=== PATIENT | female | born 1970 | race Caucasian/White ===

== ENCOUNTER 2016-08-15 09:07 | Inpatient (IN) ==
[2016-08-15] MEDS ORDERED: SODIUM CHLORIDE 0.9% 500 ML IV STA (09:26)
[2016-08-15] MEDS ORDERED: HYDROmorphone 2 MG/1 ML VIAL IV STA ×2 (09:26→10:08)
[2016-08-15] MEDS ORDERED: ONDANSETRON 4 MG/2 ML VIAL IV STA (09:26)
[2016-08-15] MEDS ORDERED: ONDANSETRON 4 MG/2 ML VIAL ONE (09:31)
[2016-08-15] MEDS ORDERED: HYDROmorphone 2 MG/1 ML VIAL ONE ×2 (09:31→10:10)
[2016-08-15 10:04] LABS: Basophils % 0.3 % (0.0-0.8); Eosinophils % 0.3 % (0.00-10.9); Hematocrit 42.3 VOL% (35.7-47.0); Hemoglobin 14.5 GM/DL (12.0-16.0); Immature Granulocytes % 0.4 %; Immature Granulocytes Absolute 0.04 #; Lymphocytes # 1.1 10*3/uL (1.4-4.0); Lymphocytes % 10.5 % (21.3-54.2); Mean Corpuscular HGB Conc 34.3 GM/DL (32-36); Mean Corpuscular Hemoglobin 32 PG (27-34); Mean Corpuscular Volume 92.4 FL (87-102); Mean Platelet Volume 11.1 FL (9.6-12.0); Monocytes # 0.3 10*3/uL (0.11-0.8); Monocytes % 2.4 % (1.7-12.7); Neutrophils # 8.9 10*3/uL (1.4-7.4); Neutrophils % 86.1 % (38.7-73.9); Platelet Count 245 T/CUMM (130-400); Red Blood Count 4.58 MC/CUMM (3.8-5.5); White Blood Count 10.3 T/CUMM (4-12)
[2016-08-15 10:35] LABS: Albumin 3.7 G/DL (3.4-5.0); Bilirubin,Total 1.1 MG/DL (0.2-1.0); Potassium 3.7 MMOL/L (3.5-5.1); Total Protein 6.9 G/DL (6.4-8.3)
[2016-08-15 11:11] LABS: Apearance,Urine Slightly Hazy (Clear); Bacteria,Urine Occasional /HPF (Few); Bilirubin,Urine Negative (Negative); Blood, Urine Negative (Negative); Glucose,Urine (UA) Negative (Negative); Ketones,Urine 5 mg/dL (Negative); Mucus,Urine Moderate /LPF (Occasional); Nitrite,Urine Negative (Negative); Protein,Urine Negative; RBC,Urine 6 /HPF (0-4); Squamous Epithelial Cell,Urine Few /HPF (0-10); Urine Specific Gravity 1.018 (1.001-1.035); WBC,Urine 2 /HPF (0-6)
[2016-08-15 11:12] LABS: Urine Color Dark Yellow (Yellow)
--- NOTE | 2016-08-15 11:21 | Ultrasound Report ---
Gallbladder ultrasound. Indication: Right upper quadrant abdominal pain. The liver is normal in size and parenchymal echogenicity without focal lesion or intrahepatic ductal dilatation. Gallstones are seen, one in the fundus, and one in the gallbladder neck. There is borderline gallbladder wall thickening at 3.2 mm. The common duct is dilated at 9 mm. The right kidney presents a normal appearance. No pancreatic abnormality is seen. Impression: Cholelithiasis. Borderline gallbladder wall thickening. Dilatation of the common duct. PROCEDURE INTERPRETED AT [facility] [place] DEPARTMENT OF RADIOLOGY Final Report Signed by: Dr. Sheila Wisdom
--- NOTE | 2016-08-15 12:02 | Emergency Department Note ---
Minh Carranza Brooke, am scribing for, and in the presence of, William Mcdaniel MD 09:31. Jonas Carranza Phillip K, MD, personally performed the services described in this documentation, ascribed by Stacy Wilkinson in my presence, and it is both accurate and complete . Arrival - Arrival Chief Complaint: Abdominal / Flank Pain Stated Complaint: abd pain/gall bladder ED Nursing Triage Note: PT HAS BAD GALLBLADDER AND IS SCHEDULED FOR LAP CHOL NEXT WEEK. REPORTS SHE STARTED HURTING AT 0200 THIS AM AND PAIN WONT PASS. REPORTS N/V Mode of Arrival: Wheelchair Limitations: No Limitations Source: Patient, RN Notes Reviewed Time Seen by Provider: 08/15/16 09:20 - History of Present Illness HPI Narrative: Patient is a 46 year old female who presents to the ED with c/o RUQ abdominal pain that started about six months ago but has worsened over time. She says she has been having intermittent episodes of pain that usually went away after a few hours, however, the pain started around 0200 this morning and has not stopped since. She says the pain does radiate through to her back. She says she has been vomiting all morning. She is unsure about having fever but her temperature during triage was 97.4. Patient says she saw Dr. Wharton, three weeks ago, and that he done an US and found gallstones. Dr. Wharton referred her to Dr. Linton where she was scheduled to have a choleystecomy on August 24. Patient says she had an upper GI scope done, on Tuesday, and says it came back "perfect." Patient has not eaten anything since around 1900 last night but states she has has some "sips of drinks." Patient has no known medical problems. She does not have a Primary Care Provider. Onset (ago): month(s) (6) Allergies/Adverse Reactions: Allergies Allergy/AdvReac Type Severity Reaction Status Date / Time bee venom (honey bee) Allergy Unknown/Unable Verified 08/15/16 09:16 to obtain Home Medications: Home Medications Medication Instructions Recorded Confirmed Type Ethinyl Estrad/Norges 0.03-0.3 [Lo 1 tablet PO DAILY 08/15/16 08/15/16 History Ovral 28] Hydrocodone/Acetaminophen 1 each PO Q4-6H PRN 08/15/16 08/15/16 History [Hydrocodon-Acetaminophn 10-325] buPROPion SR [Wellbutrin Sr] 100 mg PO BID 08/15/16 08/15/16 History Review of System - Review of System 12 point system: reviewed and no additional remarkable complaints except as stated - Review of System Constitutional: Absent: fever Respiratory: Absent: respiratory distress Gastrointestinal: Present: abdominal pain (RUQ), nausea, vomiting Musculoskeletal: Present: back pain (radiating through from abdominal pain.) Skin: Absent: rash Medical,Surgical,& Family Hx - Social History Smoking Status: Smoker, status unknown Exam Vital Signs: Vital Signs Temperature 97.4 F L 08/15/16 09:14 Pulse Rate 49 L 08/15/16 11:15 Respiratory Rate 20 08/15/16 11:15 Blood Pressure 133/77 08/15/16 11:15 O2 Sat by Pulse Oximetry 100 08/15/16 11:15 - General General appearance: alert, in no apparent distress - Head Head exam: Present: atraumatic, normocephalic - Eye Eye exam: Present: normal appearance, PERRL, EOMI - ENT ENT exam: Present: normal exam - Neck Neck exam: Present: normal inspection - Chest Chest inspection: Present: normal inspection - Respiratory Respiratory exam: Present: normal lung sounds bilaterally - Cardiovascular Cardiovascular exam: Present: regular rate, normal rhythm, normal heart sounds - Abdominal Exam Abdominal exam: Present: soft, tenderness (RUQ to direct palpation). Absent: distention - Extremities Exam Extremities exam: Present: normal inspection - Back Exam Back exam: Present: normal inspection - Neurological Exam Neurological exam: Present: alert, oriented X3 - Psychiatric Psychiatric exam: Present: normal affect, normal mood - Skin Skin exam: Present: warm, dry, intact, normal color Course Course Narrative: Patient seen by Dr. Rhoades in the ED. She is a dilated common bile duct and will probably need an ERCP before surgery. She also has multiple stones in the gallbladder. Results - Labs CBC & BMP: 08/15/16 09:57 08/15/16 09:57 Lab Results: I have reviewed the patients labs Labs: Laboratory Tests 08/15/16 09:57 Neut % (Auto) 86.1 H Lymph % (Auto) 10.5 L Neut # (Auto) 8.9 H Lymph # (Auto) 1.1 L Laboratory Tests 08/15/16 09:57 Chloride 108 H BUN 5 L Total Bilirubin 1.10 H AST 38 H ALT 71 H Alkaline Phosphatase 179 H Laboratory Tests 08/15/16 10:18 Urine Urobilinogen 2.0 H - Diagnostic Findings Procedure: Ultrasound: report reviewed by me (US gallbladder: Cholelithiasis. Borderline gallbladder wall thickening. Dilatation of the common duct.) Disposition Clinical Impression: Cholelithiasis, possible common bile duct stone Case discussed with: patient, patient's family Disposition: Still a Patient Condition: Guarded Additional Instructions: Admit to Dr. Linton per Dr. Rhoades
--- NOTE | 2016-08-15 12:49 | General Surg History&Physical ---
Assessment and Plan (1) Cholelithiasis Status: Acute Assessment and plan: Impression: Cholecystitis, possible choledocholithiasis. Next Plan: Ultrasound report reviewed. Mild gallbladder wall thickening with common duct dilatation. Slightly increased LFTs. Patient probably has at least chronic cholecystitis and possibly early acute cholecystitis. Given LFTs and ductal dilatation, will consider ERCP. Will admit and start antibiotics. Recheck labs tomorrow. Dr. Linton the third will be back tomorrow. Current Visit: Yes History of Present Illness Chief complaint: abdominal pain History of present illness: Ms. Cancino is a 46 year old female with a history of biliary colic symptoms who is scheduled to have her gallbladder removed by Dr. Linton the third in the coming weeks presented to the emergency room with worsening of her pain. She states the pain is similar to before but this time is much more intense. She's not had any nausea vomiting or fever. She complains of reflux bloating and epigastric and right upper quadrant pain. She has known slightly elevated LFTs. Home Medications Medication Instructions Recorded Confirmed Type Ethinyl Estrad/Norges 0.03-0.3 [Lo 1 tablet PO DAILY 08/15/16 08/15/16 History Ovral 28] Hydrocodone/Acetaminophen 1 each PO Q4-6H PRN 08/15/16 08/15/16 History [Hydrocodon-Acetaminophn 10-325] buPROPion SR [Wellbutrin Sr] 100 mg PO BID 08/15/16 08/15/16 History Allergies Allergy/AdvReac Type Severity Reaction Status Date / Time bee venom (honey bee) Allergy Unknown/Unable Verified 08/15/16 09:16 to obtain Medical,Surgical,& Family Hx - Medical History Medical History: noncontributory - Social History Smoking Status: Smoker, status unknown Exam - Constitutional Vitals: Period Temp Pulse Resp BP Sys/Gorman Pulse Ox Last 24 Hr 97.4 F 42-58 16-20 133-167/66-88 99-100 General appearance: no acute distress - Head Head exam: Present: normocephalic - Neck Neck exam: Present: normal inspection - Respiratory Respiratory exam: Present: clear to auscultation bilaterally - Cardiovascular Cardiovascular exam: Present: RRR - GI/Abdominal GI/Abdominal exam: Present: soft - Extremities Exam Extremities exam: Present: normal inspection - Back Exam Back exam: Present: normal inspection - Neurological Exam Neurological exam: Present: alert, oriented X3 Speech: Present: normal - Skin Skin exam: Present: normal color (moderate tenderness in the right upper quadrant. No Gastelum sign.) 12 point system: reviewed and no additional remarkable complaints except as stated Results - Labs CBC & BMP: 08/15/16 09:57 08/15/16 09:57 Lab Results: I have reviewed the past 24 hour labs - Diagnostic Findings Procedure: Ultrasound: report reviewed by me
--- NOTE | 2016-08-15 13:41 | EKG Report ---
Stationary ECG Study [facility] ER Test Date: 08/15/2016 9:41:15 AM Pat Name: MITESH BUSH Department: Room: 335 Gender: F Spare Hand: : 1970 Requested by: William Gamboa Order Number: [id number] Reading MD: LORAINE HITCHCOCK Intervals [place] Rate: 42 P: 69 MA: 154 QRS: 73 QRSD: 86 T: 70 QT: 526 QTc: 467 Interpretive Statements SINUS BRADYCARDIA Electronically Signed On 08-15-16 17:27:09 CDT by LORAINE HITCHCOCK [email or web address]
[2016-08-15] MEDS ORDERED: ACETAMINOPHEN 325 MG TABLET PO PRN (14:28)
[2016-08-15] MEDS ORDERED: ONDANSETRON 4 MG/2 ML VIAL IV PRN (14:28)
[2016-08-15] MEDS: MORPHINE 2 MG/1 ML SYRINGE IV PRN ×2 (14:36→18:55)
[2016-08-15] MEDS: PIPERACILLIN/TAZOBACTAM 3,375 MG in SODIUM CHLORIDE 0.9% 100 ML IV SCH ×2 (15:10→22:30)
[2016-08-15] MEDS: buPROPion SR 100 MG TABLET PO SCH (21:40)
[2016-08-15] MEDS: HYDROmorphone 2 MG/1 ML VIAL IV PRN (22:30)
[2016-08-16] MEDS: PIPERACILLIN/TAZOBACTAM 3,375 MG in SODIUM CHLORIDE 0.9% 100 ML IV SCH ×3 (06:33→22:43)
[2016-08-16 07:42] LABS: Basophils % 0.4 % (0.0-0.8); Eosinophils # 0.2 10*3/uL (0.0-0.87); Eosinophils % 1.7 % (0.00-10.9); Hematocrit 36.9 VOL% (35.7-47.0); Hemoglobin 12.6 GM/DL (12.0-16.0); Immature Granulocytes % 0.3 %; Immature Granulocytes Absolute 0.03 #; Lymphocytes % 21.4 % (21.3-54.2); Mean Corpuscular HGB Conc 34.1 GM/DL (32-36); Mean Corpuscular Hemoglobin 32 PG (27-34); Mean Corpuscular Volume 92.3 FL (87-102); Mean Platelet Volume 11.8 FL (9.6-12.0); Monocytes # 0.4 10*3/uL (0.11-0.8); Monocytes % 4.5 % (1.7-12.7); Neutrophils # 6.6 10*3/uL (1.4-7.4); Neutrophils % 71.7 % (38.7-73.9); Platelet Count 221 T/CUMM (130-400); Red Cell Distribution Width 12.2 % (9.3-17.3); White Blood Count 9.2 T/CUMM (4-12)
[2016-08-16] MEDS ORDERED: PANTOPRAZOLE 40 MG TABLET PO ONE (07:48)
[2016-08-16] MEDS ORDERED: DIAZEPAM 5 MG TABLET PO ONE (07:48)
[2016-08-16] MEDS ORDERED: BUPIVACAINE MPF 0.25% /EPI 30 ML VIAL ONE (07:49)
[2016-08-16] MEDS ORDERED: TISSUE ADHESIVE 1 EACH APPLICATOR TOP ONE (07:49)
[2016-08-16] MEDS ORDERED: LIDOCAINE 2%/EPI 20 ML VIAL ONE (07:49)
--- NOTE | 2016-08-16 07:53 | Event Note ---
Patient is well known to me. I have been seeing her in clinic couple of times and plan for elective cholecystectomy. I had actually offered to do it about a week ago however she was undecided about surgery and ordered some additional workup included an upper GI series. She now comes in with acute cholecystitis which consist of right upper quadrant pain that has not subsided. She is been put on IV antibiotics. I discussed laparoscopic cholecystectomy once again along with risks as we had discussed before. This was discussed with her family present. She would like to go ahead with surgery into this morning. She understands that this may require conversion open procedure or possibility that she has a common bile duct stone. If this is the case she may need an ERCP.
[2016-08-16] MEDS ORDERED: LACTATED RINGERS 1,000 ML IV SCH (08:00)
[2016-08-16 08:21] LABS: Bilirubin,Total 0.8 MG/DL (0.2-1.0); Calcium 8.3 MG/DL (8.5-10.1); Osmolality,Calculated 279.1 MOS/KG (273-304); Potassium 3.5 MMOL/L (3.5-5.1); Total Protein 5.7 G/DL (6.4-8.3)
[2016-08-16] MEDS: PANTOPRAZOLE 40 MG TABLET PO SCH (08:27)
[2016-08-16] MEDS: buPROPion SR 100 MG TABLET PO SCH ×2 (08:28→20:50)
[2016-08-16] MEDS ORDERED: GLYCOPYRROLATE 0.4 MG/2 ML VIAL ONE ×2 (08:51→10:33)
[2016-08-16] MEDS ORDERED: NEOSTIGMINE 10 MG/10 ML VIAL ONE ×2 (08:51→10:33)
[2016-08-16] MEDS ORDERED: LIDOCAINE 2% 5 ML VIAL ONE (08:51)
[2016-08-16] MEDS ORDERED: PROPOFOL 200 MG/20 ML VIAL IV ONE ×2 (08:51→10:32)
[2016-08-16] MEDS ORDERED: KETOROLAC 30 MG/1 ML VIAL ONE ×2 (08:51→10:32)
[2016-08-16] MEDS ORDERED: ROCURONIUM 100 MG/10 ML VIAL IV ONE ×2 (08:51→10:33)
[2016-08-16] MEDS ORDERED: ONDANSETRON 4 MG/2 ML VIAL ONE ×2 (08:51→10:32)
[2016-08-16] MEDS ORDERED: ETHINYL ESTRADIOL PO SCH (09:00)
[2016-08-16] MEDS ORDERED: [UNRECOGNIZED DRUG - OTHER] PO SCH (09:00)
[2016-08-16] MEDS ORDERED: NORGESTREL PO SCH (09:00)
--- NOTE | 2016-08-16 10:15 | Operative Note ---
Date of procedure: 08/16/16 Pre-op diagnosis: cholelithiasis with acute cholecystitis Post-op diagnosis: other (same with choledocholithiasis incarcerated incisional hernia) Procedure: #1 laparoscopic cholecystectomy with intraoperative cholangiogram #2 repair incarcerated incisional hernia Findings and technique: After informed consent was obtained the patient was brought the operating room and placed in spine position. After successful induction with general anesthesia the patient's abdomen was prepped and draped in usual sterile fashion. Local anesthesia was infiltrated at the umbilicus which was rather unusual in that she had no inward protrusion of her skin in the umbilicus itself was barely identifiable. She had a transverse scar in this location and I injected local anesthesia and made a transverse incision through her transverse scar. Sharp dissection was carried down to the fascia which was opened and this communicated with an incisional hernia which was chronically incarcerated just to the left of the midline. The defect was about 1.5 cm in size. I accessed the peritoneal cavity through this defect and visualize the right upper quadrant was the patient was noted to have a markedly distended edematous gallbladder. Ports were placed in the upper abdomen under camera vision and the fundus the gallbladder grasped and retracted upwards over the liver the neck of the gallbladder was identified and the peritoneum over the edematous neck of the gallbladder was incised dissecting away the duodenum and omental adhesions in the gallbladder neck well identified and dissection carried along the posterior aspect of the neck incising the peritoneum and then across the anterior aspect of the neck identifying the tapering neck of the gallbladder's form the proximal cystic duct and the cystic artery as it branched over the medial neck of the gallbladder. Careful dissection was carried out achieving the critical view of safety prior to incising any structures. Next an incision was made at the distal neck of the gallbladder were cholangiogram was obtained under fluoroscopy showing normal ductal anatomy however she had multiple common bile duct stones. Her common bile duct was moderate in size. There was inflammation in the region of the hepatoduodenal ligament and I decided not to try to do a common bile duct exploration and felt that she would be better served with postoperative ERCP. The cystic duct was then doubly clipped and divided and also secured with a pre-tied chromic Endoloop. Cystic artery was doubly clipped and divided right on the wall of the gallbladder and sharp dissection used to remove the gallbladder from the liver bed with cautery on any potential bleeding points meticulous hemostasis was maintained. The gallbladder was placed in an Endo Catch bag and removed through the umbilical port site. Next the liver bed was liberally irrigated suctioned dry and inspected for bleeding for 5-10 minutes and no bleeding or bile leakage noted. The ports removed and no bleeding noted from the port sites. Gas was evacuated from the abdomen and the fascial defect at the hernia site was then addressed. The incarcerated hernia fat was dissected free and reduced back into the abdominal cavity. A portion of this was resected. Fascial defect was then closed transversely with running 2-0 Prolene suture. The fascia appeared to be of adequate quality to do a primary repair. The wounds were then closed the deep layer of interrupted 4-0 Vicryl subcutaneous suture and skin with running 4-0 Vicryl subcuticular suture and tissue adhesive. She appeared to tolerate the procedure well and had no apparent complications. Anesthesia: GETA, local Surgeon / Physician: Herman Linton III. Estimated blood loss: minimal Specimens: other (gallbladder) Condition: stable Disposition: PACU Results - Labs CBC & BMP: 08/16/16 07:19 08/16/16 07:19 Discharge Plan - Discharge Medications No Action buPROPion SR [Wellbutrin Sr] 100 mg PO BID Ethinyl Estrad/Norges 0.03-0.3 [Lo Ovral 28] 1 tablet PO DAILY Hydrocodone/Acetaminophen [Hydrocodon-Acetaminophn 10-325] 1 each PO Q4-6H PRN PRN Reason: Pain - Follow Up or Referral - Forms/Instructions
[2016-08-16] MEDS ORDERED: SUFentanil 50 MCG/ML AMP ONE (10:30)
[2016-08-16] MEDS ORDERED: SEVOFLURANE 1 UNIT/15 MINUTE INH ONE (10:32)
[2016-08-16] MEDS ORDERED: ACETAMINOPHEN 1,000 MG/100 ML VIAL IV ONE (10:33)
[2016-08-16] MEDS ORDERED: MEPERIDINE 25 MG/1 ML VIAL IV PRN (10:39)
--- NOTE | 2016-08-16 10:47 | Fluoroscopy Report ---
[place] cholangiogram in surgery Indication: Cholecystectomy. Intraoperative cholangiogram: fluoroscopy time 19 seconds, 37 images obtained. Sequential imaging shows intraoperative cholangiogram with cystic duct injection. Multiple filling defects in the distal CBD are noted, including at the ampulla. These are felt to be stones although one of them moves as if it is a bubble. Common bile duct is not significantly dilated. No imaging of the intrahepatic radicles performed. Faint spilling contrast into the duodenum is present. Impression: Filling defects in the distal CBD likely retained stones. PROCEDURE INTERPRETED AT [facility] DEPARTMENT OF RADIOLOGY Final Report Signed by: Stephen Cueva M.D.
--- NOTE | 2016-08-16 12:50 | Gastrointestinal Consult Note ---
<Radha Painting - Last Filed: 08/16/16 12:47> Assessment and Plan (1) Cholelithiasis Status: Acute Assessment and plan: 08/16-Abd pain, with nausea and vomiting on admission with findings of gallbladder wall thickening, dilated CBD. Post cholecystectomy today with filing defects noted to distal CBD on cholangiogram. Plan for ERCP on tomorrow. Plan and addendum to follow by Dr Angel. Current Visit: Yes History of Present Illness Chief complaint: Abdominal pain, filing defects on cholangiogram History of present illness: Ms. Cancino is a 46 year old female who presented to the hospital on yesterday with sudden onset of abdominal pain, GERD, bloating and nausea and vomiting. Pt states the symptoms were sudden onset and severe in nature. She had seen Dr. Linton prior to this and was scheduled to have her gallbladder removed in the coming weeks. Due to the severity of the pain patient presented to the ER for further evaluation. She was noted on admission to have slightly elevated liver enzymes. On abdominal ultrasound she was found to have mild gallbladder wall thickening with common bile duct dilation at 9 mm. She underwent a cholecystectomy today as well as repair of incarcerated incisional hernia. Patient's cholangiogram showed filling defects to the distal common bile duct. She is doing well postoperatively with minimal pain and discomfort. Denies any nausea vomiting. Will plan at this time to proceed with ERCP on tomorrow to further investigate cholangiogram findings. LFTs are noted to trend downward since admission. Home Medications Medication Instructions Recorded Confirmed Type Ethinyl Estrad/Norges 0.03-0.3 [Lo 1 tablet PO DAILY 08/15/16 08/15/16 History Ovral 28] Hydrocodone/Acetaminophen 1 each PO Q4-6H PRN 08/15/16 08/15/16 History [Hydrocodon-Acetaminophn 10-325] buPROPion SR [Wellbutrin Sr] 100 mg PO BID 08/15/16 08/15/16 History Allergies Allergy/AdvReac Type Severity Reaction Status Date / Time bee venom (honey bee) Allergy Unknown/Unable Verified 08/15/16 09:16 to obtain Medical,Surgical,& Family Hx - Medical History Cardio: No history of: Aneurysm, Cardiac Dysrhythmia, Cerebrovascular Disease, Congenital Heart Disease, CHF, CAD, Hypertension, [place], Pacemaker, PVD, Valvular Heart Disease, Cardiovascular Problems Psychological: No history of: Anxiety Disorders, ADHD, Behavior Problems, Bipolar Disorder, Depression, Previous Suicide Attempt, Psychiatric/Substance Abuse Tx, Schizophrenia, Violent Behavior, Psychiatric Problems Neurology: No history of: Brain Aneurysm, Cerebral Hemorrhage, Cerebrovascular Accident , Cerebral Palsy, Dementia, Migraine, Multiple Sclerosis, Parkinson's Disease, Peripheral Neuropathy, Seizures, TIA, Vertigo, Neurologocal Cancer HEENT: History of: Dental Problems No history of: Ear Problem, Eye Problem, Glaucoma, Oral Cancer, HEENT Problems Endocrine: No history of: Adrenal Disease, Diabetes Mellitus (IDDM), Diabetes Mellitus ( NIDDM), Dyslipidemia, Thyroid Disorder, Endocrine Cancer, Endocrine Problems Rheumatology: No history of;: Fibromyalgia, Gout, Myasthenia Gravis, Psoriasis, Rheumatoid Arthritis, Sjogrens, Systemic Lupus Erythematosus, Rheumatological Problems Respiratory: No history of: Asthma, Bronchitis, COPD, Intubation, Obstructive Sleep Apnea , Pulmonary Embolism, Pulmonary Hypertension, Pneumonia, Lung Cancer, Respiratory Problems Renal: No history of: Renal (Kidney) Cancer, Dialysis, Renal Failure, Renal Problems Genitourinary: No history of: Bladder Problem, Kidney Stones, Recurring Urinary Tract Infections, Genitourinary Cancer, Problems Gastrointestinal: No history of: Bowel Obstruction, Clostridium Difficile, Crohn's Disease, Diverticulitis/ Diverticulosis, Esophageal Varices, GERD, Gastrointestinal Bleed , Hemorrhoids, Hematochezia, Hepatitis, Liver Problems, Pancreatitis, Polyps, Ulcerative Colitis, Gastrointestinal Cancer, GI Problems Musculoskeletal: No history of: Amputation, Back/Neck Problems, Degenerative Disk Disease, Herniated Disk, Osteoporosis, Musculoskeletal Cancer, Musculoskeletal Problems Hematology: No history of: Anemia, Blood Transfusion Reaction, Bleeding Problems, Clotting Problems, Sickle Cell Disease, Hematologic Cancer, Blood Disorders Reproductive: History of: Complication No history of: Abnormal Pap Smear, Breast Cancer, Endometriosis, Ectopic , Ovarian Cysts, Sexually Transmitted Disorders, Reproductive Cancer, Reproductive Problems Other: History of: Anaphylaxis No history of: Anesthesia Reactions, Cancer, Eczema, HIV, Malignant Hyperthermia, MRSA, Vancomycin-Resistant Enterococci, Skin Problems, Miscellaneous Medical Problems - Surgical History Cardiac Surgeries: Patient Denies: Femoral-Popliteal Bypass Graft, Cardiac Catheterization, Cardiac Surgery, Carotid Endarterectomy, Internal Defibrillator, Vascular Access Devices Thoracic Surgeries: Patient denies;: Kidney (Renal Surgery), Lithotripsy, Nephrectomy, Organ Transplant, Lobectomy Neurologic Surgeries: Patient denies: Brain Aneurysm, Cerebral Hemorrhage, Neurologic Surgery HEENT Surgeries: Patient denies: Carotid Endarterectomy, Eye Surgery, Thyroid Surgery, Tonsilectomy & Adenoidectomy Abdominal Surgeries: Patient denies: Abdominal Surgery, Appendectomy, Cholecystectomy, Colonoscopy , Gastric Bypass Surgery, EGD, Hernia Repair, Splenectomy Reproductive Surgeries: Patient denies;: Breast Surgery, Section, Cystoscopy, Dilation and Curettage, Genitourinary Surgery, Gynecologic Surgery, Hysterectomy, Tubal Ligation Orthopedic Surgeries: Patient denies;: Implanted Devices, Orthopedic Surgery, Spinal Surgery, Total Hip Replacement, Total Knee Replacement - Family History Family History: Reports;: Family Cancer, Family Diabetes, Family Heart Disease Denies;: Family Anesthesia Reaction, Family Hematology, Family Hypertension, Family Psychiatric Problems, Family Stroke, Additional Family History - Social History Smoking Status: Smoker, status unknown 12 point system: reviewed and no additional remarkable complaints except as stated - Constitutional Constitutional: Present: as per HPI - EENT Eyes: Present: as per HPI Ears: Present: as per HPI Nose, mouth and throat: Present: as per HPI - Cardiovascular Cardiovascular: Present: as per HPI - Respiratory Respiratory: Present: as per HPI - Gastrointestinal Gastrointestinal: Present: as per HPI, abdominal pain, nausea, vomiting - Genitourinary Genitourinary: Present: as per HPI - Musculoskeletal Musculoskeletal: Present: as per HPI - Neurological Neurological: Present: as per HPI - Psychiatric Psychiatric: Present: as per HPI - Endocrine Endocrine: Present: as per HPI - Hematologic/Lymphatic Hematologic/Lymphatic: Present: as per HPI Exam - Constitutional Vitals: Period Temp Pulse Resp BP Sys/Gorman Pulse Ox Last 24 Hr 96.1 F-98.7 F 43-77 12-20 104-156/56-83 97-100 General appearance: normal weight, no acute distress - Head Head exam: Present: normal inspection, normocephalic - Eye Eye exam: Present: other (lids and conjunctiva unremarkable). Absent: scleral icterus - ENT ENT exam: Present: normal exam, normal oropharynx - Neck Neck exam: Present: normal inspection - Respiratory Respiratory exam: Present: clear to auscultation bilaterally. Absent: rales, rhonchi, wheezes - Cardiovascular Cardiovascular exam: Present: regular rate and rhythm. Absent: diastolic murmur , JVD, systolic murmur - GI/Abdominal GI/Abdominal exam: Present: normal bowel sounds, tenderness, soft. Absent: ascites, distended, mass, organomegaly - Extremities Exam Extremities exam: Present: normal inspection, full ROM - Back Exam Back exam: Present: normal inspection - Neurological Exam Neurological exam: Present: alert, oriented X3 - Psychiatric Psychiatric exam: Present: normal affect, normal mood - Skin Skin exam: Present: normal color, warm, dry Results - Labs CBC & BMP: 08/16/16 07:19 08/16/16 07:19 Lab Results: I have reviewed the past 24 hour labs Quality Measures - VTE Contraindication to Pharmacological VTE Prophylaxis: High Risk of Bleeding <Cristhian Angel - Last Filed: 08/16/16 17:30> History of Present Illness History of present illness: Ms. Cancino is a 46 year old female Exam - Constitutional Vitals: Period Temp Pulse Resp BP Sys/Gorman Pulse Ox Last 24 Hr 96.1 F-98.7 F 48-61 12-20 104-143/56-83 97-100 Results - Labs CBC & BMP: 08/16/16 07:19 08/16/16 07:19
--- NOTE | 2016-08-16 13:09 | Anesthesia ---
Anesthesia Post OP - Post Ansesthetic Evaluation Patient seen in post op: Yes Resp: within normal limits CV: within normal limits Mental: within normal limits Temp: within normal limits [id number]: within normal limits Nausea and Vomiting: within normal limits Pain: within normal limits
[2016-08-16] MEDS: HYDROmorphone 2 MG/1 ML VIAL IV PRN ×2 (16:57→20:50)
[2016-08-17] MEDS: HYDROmorphone 2 MG/1 ML VIAL IV PRN ×4 (03:38→22:18)
[2016-08-17 04:07] LABS: Basophils % 0.4 % (0.0-0.8); Eosinophils # 0.1 10*3/uL (0.0-0.87); Eosinophils % 1.6 % (0.00-10.9); Hematocrit 35.3 VOL% (35.7-47.0); Hemoglobin 11.9 GM/DL (12.0-16.0); Immature Granulocytes % 0.5 %; Immature Granulocytes Absolute 0.04 #; Lymphocytes % 25.1 % (21.3-54.2); Mean Corpuscular HGB Conc 33.7 GM/DL (32-36); Mean Corpuscular Hemoglobin 32 PG (27-34); Mean Corpuscular Volume 94.4 FL (87-102); Mean Platelet Volume 12.1 FL (9.6-12.0); Monocytes # 0.4 10*3/uL (0.11-0.8); Monocytes % 5.1 % (1.7-12.7); Neutrophils # 5.3 10*3/uL (1.4-7.4); Neutrophils % 67.3 % (38.7-73.9); Platelet Count 193 T/CUMM (130-400); Red Blood Count 3.74 MC/CUMM (3.8-5.5); White Blood Count 7.9 T/CUMM (4-12)
[2016-08-17 04:19] LABS: PT Patient Result 10.2 SECS
[2016-08-17] MEDS: PIPERACILLIN/TAZOBACTAM 3,375 MG in SODIUM CHLORIDE 0.9% 100 ML IV SCH ×3 (06:09→22:18)
[2016-08-17] MEDS: PANTOPRAZOLE 40 MG TABLET PO SCH (08:03)
[2016-08-17] MEDS: buPROPion SR 100 MG TABLET PO SCH ×2 (08:03→22:18)
[2016-08-17] MEDS ORDERED: fentaNYL 100 MCG/2 ML VIAL ONE (10:18)
[2016-08-17] MEDS ORDERED: MIDAZOLAM 2 MG/2 ML VIAL ONE (10:19)
--- NOTE | 2016-08-17 11:50 | Pathology Report from [facility] ---
ACCESSION # : [id number] PATIENT NAME : Ivette Cancino ORDERING DR : ALEXI SKELTON III, MD CLINICAL HX: Cholelithiasis POST-OP DX: Same SPECIMEN INFO: #1 Gallbladder #2 Incarcerated hernia sac GROSS DESCRIPTION: Received in formalin in two parts labeled:#1 "IVETTE CANCINO" is an intact gallbladder measuring 10.5 x 3.0 cm. The serosa is smooth and erythematous. The gallbladder wall has an average thickness of 0.4 cm. The mucosal surface is velvety and red chisholm. The lumen contains hyperemic yellow bile with a few yellow green stones measuring up to 1.3 cm. [employer] sections are submitted in cassette #1.#2 "IVETTE CANCINO & #2" are two fragments of fatty, fibromembraneous tissue measuring 3.3 x 2.5 cm collectively. T[employer] M[employer] sections are submitted in cassette #2. DIAGNOSIS FOR IVETTE CANCINO: #1 GALLBLADDER, CHOLECYSTECTOMY: Acute and chronic cholecystitis; cholelithiasis.#2 INCARCERATED HERNIA SAC: Fibrosis and congestion. SERVICE DATE: 08/16/2016 REPORT DATE: 08/17/2016 PATHOLOGIST: Penny Rangel M.D. [facility]
[2016-08-17] MEDS ORDERED: GLUCAGON 1 MG VIAL ONE (12:08)
[2016-08-17] MEDS ORDERED: LIDOCAINE 2% 5 ML VIAL ONE (12:09)
[2016-08-17] MEDS ORDERED: PROPOFOL 200 MG/20 ML VIAL IV ONE (12:09)
--- NOTE | 2016-08-17 12:23 | History and Physical Update ---
History and Physical Update - Physical Exam Mental Status: alert and oriented Heart: regular rate and rhythm Lung: clear to auscultation Abdomen: within normal limits Vitals: within normal limits
--- NOTE | 2016-08-17 12:26 | Operative Note ---
Date of procedure: 08/17/16 Pre-op diagnosis: Choledocholithiasis Procedure: Endoscopic retrograde cholangiopancreatography with sphincterotomy and balloon stone extraction. 46-year-old female with intraoperative cholangiogram showing choledocholithiasis now for ERCP for removal. Informed symptoms obtained the patient. She was sedated with MAC anesthesia per anesthesia protocol. Patient was placed in the prone position the Olympus duodenal scope inserted oral cavity under direct vision the esophagus was intubated. The esophagus stomach and duodenum appear normal. The ampulla was normal. Using a sphincter tone the ampulla was cannulated revealing a normal pancreatic duct to the head body and tail the pancreas. The catheter was subsequently reposition with findings of opacification of the common bile duct with 2 filling defects as mentioned on the intraoperative cholangiogram. Cystic duct was adequately clipped and no leak was noted. No additional masses were identified no strictures were seen. It was elected to proceed with sphincterotomy and a 8 mm sphincterotomy was performed without difficulty. Subsequently a balloon catheter was advanced into the common bile duct inflated to 8 mm and pulled in the duodenum 2 with removal of 2 stones. No residual stones were seen. Of note these were brown pigment stones. Patient our procedure well she is discharged recovery in good condition. Postop diagnosis: 1. Choledocholithiasis status post successful ERCP with stone extraction- monitor for postoperative complications. Anesthesia: MAC Surgeon / Physician: Cristhian Angel Estimated blood loss: none Specimens: none sent Condition: stable Disposition: post procedure unit Results - Labs CBC & BMP: 08/17/16 02:51 08/17/16 02:51 Discharge Plan - Discharge Medications No Action buPROPion SR [Wellbutrin Sr] 100 mg PO BID Ethinyl Estrad/Norges 0.03-0.3 [Lo Ovral 28] 1 tablet PO DAILY Hydrocodone/Acetaminophen [Hydrocodon-Acetaminophn 10-325] 1 each PO Q4-6H PRN PRN Reason: Pain - Follow Up or Referral - Forms/Instructions
--- NOTE | 2016-08-17 12:35 | Anesthesia ---
Anesthesia Post OP - Post Ansesthetic Evaluation Patient seen in post op: Yes Resp: within normal limits CV: within normal limits Mental: within normal limits Temp: within normal limits Sbzz-Ir-Ovsbheejk: within normal limits Nausea and Vomiting: within normal limits Pain: within normal limits
--- NOTE | 2016-08-17 14:23 | Fluoroscopy Report ---
[place] fluoroscopy <1hr Indication: Elevated LFT. Retained stones. ERCP: Fluoroscopy time 2.48 minutes, 4 capture images. First 2 images confirmed retained stones in the CBD. Of the 3 images obtained, the third shows a balloon sweep of the biliary collecting system. Fourth image is not well opacified to completely exclude retained stones. No biliary duct dilatation is shown. Impression: Balloon sweep of the biliary collecting system. PROCEDURE INTERPRETED AT [facility] DEPARTMENT OF RADIOLOGY Final Report Signed by: Stephen Cueva M.D.
--- NOTE | 2016-08-17 15:39 | Event Note ---
ERCP noted. She is having some nausea this afternoon and some abdominal pain. We will hold off discharge this afternoon unless she feels much better later this evening. Otherwise we will look at discharge in the morning.
[2016-08-18] MEDS: PIPERACILLIN/TAZOBACTAM 3,375 MG in SODIUM CHLORIDE 0.9% 100 ML IV SCH (06:31)
--- NOTE | 2016-08-18 08:33 | Event Note ---
She feels much better. She has stable vital signs and has minimal abdominal pain and no further nausea since she had 1 episode of nausea and vomiting yesterday afternoon post ERCP. She is hungry this morning. I think that she should be fine for discharge if she tolerates a diet this morning. I will see her back in the clinic in 1 week.
--- NOTE | 2016-08-18 08:36 | Discharge Summary ---
Hospital Course - Hospital Course Hospital Course: The patient was admitted with acute cholecystitis and underwent laparoscopic cholecystectomy which demonstrated multiple common bile duct stones on intraoperative cholangiogram. GI was consulted and the following morning she underwent ERCP. She had abdominal pain and nausea post ERCP which resolved last night. She is symptom-free this morning and feels well discharge her home with plans to follow-up in my office in one week. - Time spent with patient Time with patient DS: Less than 30 minutes Discharge Plan - Discharge Data Disposition: Disch To Home/Self Care Condition at Discharge: Stable Discharge Diet: advance to your usual diet Activity: resume usual activities as tolerated - Discharge Medications No Action buPROPion SR [Wellbutrin Sr] 100 mg PO BID Ethinyl Estrad/Norges 0.03-0.3 [Lo Ovral 28] 1 tablet PO DAILY Hydrocodone/Acetaminophen [Hydrocodon-Acetaminophn 10-325] 1 each PO Q4-6H PRN PRN Reason: Pain - Follow Up or Referral Follow Up: Herman Linton III., MD [Physician] - 1 Week - Forms/Instructions Additional Discharge Instructions: [facility] prescription Exam - Constitutional Vitals: Period Temp Pulse Resp BP Sys/Gorman Pulse Ox Last 24 Hr 98.3 F-98.6 F 49-60 10-19 113-157/41-91 97-100 DS: Provider Date of admission: 08/15/16 12:42 Primary care physician: . No PCP Attending physician on admission: Herman Linton III., Consults: 08/15/16 14:31 Consult to Pharmacy [CONS] Routine Reason for Pharmacy Consult: Adjust Meds Renal Funct 08/16/16 11:19 Consult to Physician [CONS] Routine Comment: ercp Consulting Provider: Cristhian Angel Consulting Provider Notified: Yes When should Consulting Provider be notified: Now Consult to Specialist Group: Gastroenterology Person Notified: kathy hines Date Notified: 08/16/16 Time Notified: 11:49 Discharging clinician: Herman Linton III.,
--- NOTE | 2016-08-18 08:37 | Event Note ---
I put in my discharge summary to give a [place] prescription however she is already on [place] at home
--- NOTE | 2016-08-18 09:04 | Gastrointestinal Progress Note ---
<Radha Painting - Last Filed: 08/18/16 09:01> Assessment and Plan (1) Cholelithiasis Status: Acute Assessment and plan: 08/18-Post ERCP with removal of ductal stone. Mild abd tenderness. Tolerating small amount diet. For discharge home today. Plan and addendum to follow by Dr Angel. 08/16-Abd pain, with nausea and vomiting on admission with findings of gallbladder wall thickening, dilated CBD. Post cholecystectomy today with filing defects noted to distal CBD on cholangiogram. Plan for ERCP on tomorrow. Plan and addendum to follow by Dr Angel. Gastroenterology - PN: Subj Interval history: CC: Choledocholithiasis Pt is seen awake and alert. States she is feeling better today. She states she had an episode of nausea and vomiting post ERCP yesterday but states this has resolved. She is having less abdominal soreness today. States that she ate some of her breakfast and she tolerated it however it has caused some gaseous feeling. Abdomen is soft, mild tenderness. She is for discharge home today. ROS: Denies SOB or chest pain Exam (Progress Note) - Constitutional Vitals: Period Temp Pulse Resp BP Sys/Gorman Pulse Ox Last 24 Hr 98.3 F-98.6 F 49-60 10-19 113-157/41-91 97-100 General appearance: normal weight, no acute distress - Head Head exam: Present: normal inspection, normocephalic - Eye Eye exam: Present: other (lids and conjunctiva unremarakble). Absent: scleral icterus - ENT ENT exam: Present: normal exam, normal oropharynx - Neck Neck exam: Present: normal inspection - Respiratory Respiratory exam: Present: clear to auscultation bilaterally. Absent: rales, rhonchi, wheezes - Cardiovascular Cardiovascular exam: Present: regular rate and rhythm. Absent: diastolic murmur , JVD, systolic murmur - GI/Abdominal GI/Abdominal exam: Present: normal bowel sounds, tenderness, soft. Absent: ascites, distended, mass, organomegaly - Extremities Exam Extremities exam: Present: normal inspection, full ROM - Back Exam Back exam: Present: normal inspection - Neurological Exam Neurological exam: Present: alert, oriented X3 - Psychiatric Psychiatric exam: Present: normal affect, normal mood - Skin Skin exam: Present: normal color, warm, dry Results - Labs CBC & BMP: 03/28/17 02:51 08/17/16 02:51 Lab Results: I have reviewed the past 24 hour labs Specialty Discharge - Follow Up or Referrals Follow up with: Herman Linton III., MD [Physician] - 08/25/16 10:45 am <Cristhian Angel - Last Filed: 08/18/16 18:54> Exam (Progress Note) - Constitutional Vitals: Period Temp Pulse Resp BP Sys/Gorman Pulse Ox Last 24 Hr 98.2 F-98.3 F 54-57 16-18 115-126/59-64 97-100 Results - Labs CBC & BMP: 08/17/16 02:51 08/17/16 02:51
[2016-08-18] MEDS: buPROPion SR 100 MG TABLET PO SCH (09:38)
[2016-08-18] MEDS: PANTOPRAZOLE 40 MG TABLET PO SCH (09:39)
[2016-08-18 14:25] VITALS: BP 119/63
== END 2016-08-18 13:15 | disposition home or self-care (01) | DRG 418 ==
LOC: N.ED 09:07 → N.EDINP 12:42 → N.3E 13:10
PROVIDERS: ADMIT Surgery; ATTEND Surgery
PROC: LAPCHOL (2016-08-16 08:00)
PROC: ERCPWSP (ICD-10-PCS; 2016-08-17 11:05)